=== PATIENT | female | born 1990 | race African-American/Black ===

== ENCOUNTER 2017-01-20 13:55 | Emergency (ER) | payer MEDICAID, OTHER ==
[~2017-01-20] VITALS: Ht 170.2 cm; Wt 140.0 kg
[2017-01-20 14:34] VITALS: BP 152/86
== END 2017-01-20 19:35 | disposition left against medical advice (07) ==
LOC: ER 16:13
DX: R10.9 Unspecified abdominal pain (principal); Z53.21 Procedure and treatment not carried out due to patient leaving prior to being seen by health care provider

== ENCOUNTER 2017-01-26 12:14 | Emergency (ER) | payer OTHER ==
[~2017-01-26] VITALS: Ht 170.2 cm; Wt 139.0 kg
[2017-01-26] MEDS ORDERED: LISI10TA5 PO (12:45)
[2017-01-26] MEDS ORDERED: METO25TA6 PO (12:45)
[2017-01-26] MEDS ORDERED: FURO-151 PO (12:45)
[2017-01-26 16:00] VITALS: BP 123/85
[2017-01-26] MEDS ORDERED: ACETAMINOPHEN 325MG TABLET PO ONE (16:15)
[2017-01-26] MEDS ORDERED: ONDANSETRON 4MG ODT PO ONE (16:15)
[2017-01-26 16:35] LABS: CLARITY URINE CLOUDY (CLEAR); COLOR URINE ORANGE (YELLOW); KETONES URINE 1+ (NEGATIVE); LEUKOCYTE ESTERASE URINE 1+ (NEGATIVE); NITRITE URINE NEGATIVE (NEGATIVE); OCCULT BLOOD URINE 3+ (NEGATIVE); PROTEIN URINE 1+ (NEGATIVE); SPECIFIC GRAVITY URINE 1.023 (1.005-1.030); UROBILINOGEN URINE 0.2 E.U./dL (0.2-1.0)
[2017-01-26 17:12] LABS: *AMPHETAMINES SCREEN URINE NEGATIVE (NEGATIVE); *BARBITURATES SCREEN URINE NEGATIVE (NEGATIVE); *BENZODIAZEPINES SCREEN URINE NEGATIVE (NEGATIVE); *COCAINE SCREEN URINE NEGATIVE (NEGATIVE); CANNABINOID URINE SCREEN NEGATIVE (NEGATIVE); METHADONE URINE SCREEN NEGATIVE (NEGATIVE); PHENCYCLIDINE URINE SCREEN NEGATIVE (NEGATIVE)
[2017-01-26 17:20] LABS: OPIATES URINE SCREEN PRESUMTIVE POSITIVE (NEGATIVE)
== END 2017-01-26 18:51 | disposition left against medical advice (07) ==
LOC: ER 14:19
DX: D25.9 Leiomyoma of uterus, unspecified (principal); I51.9 Heart disease, unspecified; Z88.6 Allergy status to analgesic agent; Z90.49 Acquired absence of other specified parts of digestive tract; Z98.890 Other specified postprocedural states; Z90.721 Acquired absence of ovaries, unilateral
CPT/HCPCS: 76830; 76856; 80305; 81001; 81025; 99285; Z7610; Q0162

== ENCOUNTER 2017-08-05 10:12 | Emergency (ER) | payer MEDICAID ==
[~2017-08-05] VITALS: Ht 160 cm; Wt 132.7 kg
[~2017-08-05 10:12] MED LIST: FURO-151 PO; LISI10TA5 PO; METO25TA6 PO
[2017-08-05] MEDS ORDERED: SODIUM CHLORIDE 0.9% 1,000 ML IV ONE (10:45)
[2017-08-05] MEDS ORDERED: ONDANSETRON HCL 4MG/2ML VIAL IV STA (10:45)
[2017-08-05] MEDS ORDERED: MORPHINE SULFATE 10 MG/ML CPJ IV ONE (11:15)
[2017-08-05] MEDS ORDERED: ONDANSETRON 4MG ODT PO ONE (11:15)
[2017-08-05 12:34] LABS: BASOPHILS % 0.9 % (0.0-2.0); EOSINOPHILS % 1.5 % (0.0-5.0); HEMATOCRIT. 28.5 % (36.0-48.0); HEMOGLOBIN. 8.8 g/dL (12.0-16.0); LYMPHOCYTES % 29.3 % (20.0-50.0); MEAN CORPUSCULAR HEMOGLOBIN 21.6 pg (28.0-32.0); MEAN CORPUSCULAR VOLUME 70.3 fL (81.0-99.0); MEAN PLATELET VOLUME 7.4 fl (7.4-10.4); MONOCYTES % 9.8 % (2.0-8.0); NEUTROPHILS % 58.5 % (40.0-76.0); PLATELET 407 x1000/uL (130-400); RED BLOOD CELL COUNT 4.05 mill/uL (4.2-5.4); RED CELL DISTRIBUTION WIDTH 18.8 % (11.6-14.6)
[2017-08-05 12:35] LABS: CHLORIDE 107 mEq/L (98-107)
[2017-08-05 12:37] LABS: PARTIAL THROMBOPLASTIN TIME 26.6 sec (23.4-31.0); PROTHROMBIN TIME 10.3 sec (9.4-11.6)
[2017-08-05 12:45] LABS: HCG SCREEN NEGATIVE
[2017-08-05 14:10] VITALS: BP 141/87
== END 2017-08-05 15:08 | disposition left against medical advice (07) ==
LOC: ER 10:12 → CANBEDREQ 15:32
DX: G89.18 Other acute postprocedural pain (principal); N99.842 Postprocedural seroma of a genitourinary system organ or structure following a genitourinary system procedure; L02.211 Cutaneous abscess of abdominal wall; D64.9 Anemia, unspecified; L02.818 Cutaneous abscess of other sites; Z90.710 Acquired absence of both cervix and uterus; Z88.6 Allergy status to analgesic agent; Z88.8 Allergy status to other drugs, medicaments and biological substances
CPT/HCPCS: 36415; 74022; 76857; 80053; 83605; 83690; 84703; 85025; 85610; 85730; 87040; 93005; 96361; 96374; 96375; 99285; J2270; J2405; J7030; Z7610

== ENCOUNTER 2020-10-06 13:10 | Emergency (ER) | payer MEDICAID ==
[~2020-10-06] VITALS: Ht 170.2 cm; Wt 110.0 kg
[~2020-10-06 13:10] MED LIST changes: +LISI10TA26 PO; -LISI10TA5 PO
[2020-10-06] MEDS ORDERED: DIPHENHYDRAMINE 50MG/ML VIAL IV ONE ×2 (14:00→16:15)
[2020-10-06] MEDS ORDERED: LORATADINE 10MG TABLET PO SCH (14:00)
[2020-10-06] MEDS ORDERED: FAMOTIDINE 20MG/2ML VIAL IV ONE (14:00)
[2020-10-06] MEDS ORDERED: SODIUM CHLORIDE 0.9% 1,000 ML IV ONE (14:00)
[2020-10-06 15:29] LABS: CLARITY URINE CLEAR (CLEAR); COLOR URINE YELLOW (YELLOW); KETONES URINE NEGATIVE (NEGATIVE); LEUKOCYTE ESTERASE URINE NEGATIVE (NEGATIVE); NITRITE URINE NEGATIVE (NEGATIVE); OCCULT BLOOD URINE NEGATIVE (NEGATIVE); PH URINE 5.5 (4.5-8.0); PROTEIN URINE NEGATIVE (NEGATIVE); SPECIFIC GRAVITY URINE 1.075 (1.005-1.030); UROBILINOGEN URINE 0.2 E.U./dL (0.2-1.0)
[2020-10-06] MEDS ORDERED: MORPHINE SULFATE 4 MG/ML CPJ (NOT FOR IM USE) IV ONE (15:30)
[2020-10-06 15:32] LABS: BASOPHILS % 0.3 % (0.0-2.0); EOSINOPHILS % 0.4 % (0.0-5.0); HEMATOCRIT. 36.8 % (36.0-48.0); HEMOGLOBIN. 12.2 g/dL (12.0-16.0); LYMPHOCYTES % 32.4 % (20.0-50.0); MEAN CORPUSCULAR HEMOGLOBIN 27.5 pg (28.0-32.0); MEAN PLATELET VOLUME 7.3 fl (7.4-10.4); MONOCYTES % 11.9 % (2.0-8.0); PLATELET 365 x1000/uL (130-400); RED BLOOD CELL COUNT 4.44 mill/uL (4.2-5.4); RED CELL DISTRIBUTION WIDTH 16.4 % (11.6-14.6)
[2020-10-06 15:35] LABS: CHLORIDE 109 mEq/L (98-107)
[2020-10-06 15:38] LABS: PROTHROMBIN TIME 10.3 sec (9.6-11.0)
[2020-10-06 15:44] VITALS: BP 153/93
== END 2020-10-06 17:43 | disposition left against medical advice (07) ==
LOC: ER 13:10
DX: R10.31 Right lower quadrant pain (principal); Z88.6 Allergy status to analgesic agent; Z88.8 Allergy status to other drugs, medicaments and biological substances; Z88.9 Allergy status to unspecified drugs, medicaments and biological substances; Z98.890 Other specified postprocedural states; Z90.49 Acquired absence of other specified parts of digestive tract; Z90.710 Acquired absence of both cervix and uterus
CPT/HCPCS: 36415; 71045; 80053; 81003; 83880; 84484; 85025; 85610; 85730; 93005; 96361; 96374; 96375; 96376; 99285; J1200; J2270; J3490; J7030

== ENCOUNTER 2020-10-13 10:19 | Emergency (ER) | payer MEDICAID ==
[~2020-10-13] VITALS: Ht 170.2 cm; Wt 115.0 kg
[2020-10-13] MEDS ORDERED: MORPHINE SULFATE 4 MG/ML CPJ (NOT FOR IM USE) IV STA (11:14)
[2020-10-13 11:30] VITALS: BP 161/92
[2020-10-13 11:39] LABS: CLARITY URINE CLEAR (CLEAR); COLOR URINE YELLOW (YELLOW); KETONES URINE NEGATIVE (NEGATIVE); LEUKOCYTE ESTERASE URINE NEGATIVE (NEGATIVE); NITRITE URINE NEGATIVE (NEGATIVE); OCCULT BLOOD URINE NEGATIVE (NEGATIVE); PROTEIN URINE NEGATIVE (NEGATIVE); UROBILINOGEN URINE 0.2 E.U./dL (0.2-1.0)
[2020-10-13] MEDS ORDERED: DIPHENHYDRAMINE 50MG/ML VIAL IV ONE (12:15)
[2020-10-13 12:56] LABS: BASOPHILS % 0.5 % (0.0-2.0); EOSINOPHILS % 0.4 % (0.0-5.0); HEMATOCRIT. 42.2 % (36.0-48.0); HEMOGLOBIN. 13.2 g/dL (12.0-16.0); LYMPHOCYTES % 35.1 % (20.0-50.0); MEAN CORPUSCULAR HEMOGLOBIN 27.3 pg (28.0-32.0); MEAN CORPUSCULAR VOLUME 87.3 fL (81.0-99.0); MONOCYTES % 12.9 % (2.0-8.0); NEUTROPHILS % 51.1 % (40.0-76.0); PLATELET 291 x1000/uL (130-400); RED BLOOD CELL COUNT 4.83 mill/uL (4.2-5.4); RED CELL DISTRIBUTION WIDTH 16.7 % (11.6-14.6)
[2020-10-13 13:01] LABS: CHLORIDE 110 mEq/L (98-107)
[2020-10-13 13:13] LABS: HCG SCREEN NEGATIVE
== END 2020-10-13 12:45 | disposition left against medical advice (07) ==
LOC: ER 10:19
DX: R10.31 Right lower quadrant pain (principal); Z88.6 Allergy status to analgesic agent; Z88.8 Allergy status to other drugs, medicaments and biological substances; Z88.9 Allergy status to unspecified drugs, medicaments and biological substances; Z90.49 Acquired absence of other specified parts of digestive tract; Z90.710 Acquired absence of both cervix and uterus; Z98.890 Other specified postprocedural states
CPT/HCPCS: 36415; 80053; 81003; 81025; 84703; 85025; 99283

== ENCOUNTER 2020-11-15 04:37 | Emergency (ER) | payer MEDICAID ==
[~2020-11-15] VITALS: Ht 170.2 cm; Wt 148.0 kg
[2020-11-15] MEDS ORDERED: MORPHINE SULFATE 4 MG/ML CPJ (NOT FOR IM USE) IV STA (05:27)
[2020-11-15] MEDS ORDERED: ONDANSETRON HCL 4MG/2ML INJ IV STA (05:27)
[2020-11-15] MEDS ORDERED: DIPHENHYDRAMINE 50MG/ML VIAL IV ONE (05:30)
[2020-11-15 05:50] LABS: BASOPHILS % 0.7 % (0.0-2.0); EOSINOPHILS % 2.3 % (0.0-5.0); HEMATOCRIT. 35.1 % (36.0-48.0); HEMOGLOBIN. 11.5 g/dL (12.0-16.0); LYMPHOCYTES % 21.6 % (20.0-50.0); MEAN CORPUSCULAR HEMOGLOBIN 27.1 pg (28.0-32.0); MEAN CORPUSCULAR VOLUME 82.7 fL (81.0-99.0); MONOCYTES % 14.2 % (2.0-8.0); NEUTROPHILS % 61.2 % (40.0-76.0); PLATELET 331 x1000/uL (130-400); RED BLOOD CELL COUNT 4.25 mill/uL (4.2-5.4); RED CELL DISTRIBUTION WIDTH 16.7 % (11.6-14.6)
[2020-11-15 05:55] LABS: CHLORIDE 107 mEq/L (98-107)
[2020-11-15 06:12] LABS: INR 0.9; PROTHROMBIN TIME 9.8 sec (9.6-11.0)
[2020-11-15] MEDS ORDERED: MORPHINE SULFATE 4 MG/ML CPJ (NOT FOR IM USE) IV ONE ×2 (06:45→08:30)
[2020-11-15] MEDS ORDERED: IOHEXOL-300 100 ML BOTTLE ONE (07:26)
[2020-11-15 07:51] LABS: CLARITY URINE CLEAR (CLEAR); COLOR URINE YELLOW (YELLOW); KETONES URINE NEGATIVE (NEGATIVE); LEUKOCYTE ESTERASE URINE NEGATIVE (NEGATIVE); NITRITE URINE NEGATIVE (NEGATIVE); OCCULT BLOOD URINE NEGATIVE (NEGATIVE); PH URINE 5.5 (4.5-8.0); PROTEIN URINE NEGATIVE (NEGATIVE); SPECIFIC GRAVITY URINE 1.014 (1.005-1.030); UROBILINOGEN URINE 0.2 E.U./dL (0.2-1.0)
[2020-11-15 09:00] VITALS: BP 156/80
[2020-11-15] MEDS ORDERED: T3 PO (09:20)
[2020-11-15] MEDS ORDERED: ONDA4TAB5 PO (09:21)
== END 2020-11-15 10:39 | disposition home or self-care (01) ==
LOC: ER 04:37 → EDBEDREQ 08:35 → EDBEDREQTM 08:35 → CANBEDREQ 10:26 → ER 10:39
DX: R10.30 Lower abdominal pain, unspecified (principal); E11.9 Type 2 diabetes mellitus without complications; I25.10 Atherosclerotic heart disease of native coronary artery without angina pectoris; Z98.890 Other specified postprocedural states; Z88.8 Allergy status to other drugs, medicaments and biological substances; Z88.6 Allergy status to analgesic agent
CPT/HCPCS: 36415; 74177; 80053; 81003; 83690; 85025; 85610; 93005; 96374; 96375; 96376; 99285; J1200; J2270; J2405; Q9967

== ENCOUNTER 2020-12-07 07:37 | Emergency (ER) | payer MEDICAID ==
[~2020-12-07] VITALS: Ht 170.2 cm; Wt 148.0 kg
[~2020-12-07 07:37] MED LIST changes: +ONDA4TAB5 PO; +T3 PO
[2020-12-07] MEDS ORDERED: ONDANSETRON HCL 4MG/2ML INJ IV STA (08:33)
[2020-12-07] MEDS ORDERED: MORPHINE SULFATE 4 MG/ML CPJ (NOT FOR IM USE) IV STA (08:33)
[2020-12-07] MEDS ORDERED: SODIUM CHLORIDE 0.9% 1,000 ML IV ONE (08:45)
[2020-12-07] MEDS ORDERED: MORPHINE SULFATE 2 MG/ML CPJ (NOT FOR IM USE) IV STA (09:04)
[2020-12-07 09:06] LABS: EOSINOPHILS % 0.9 % (0.0-5.0); HEMATOCRIT. 35.8 % (36.0-48.0); HEMOGLOBIN. 11.7 g/dL (12.0-16.0); LYMPHOCYTES % 30.6 % (20.0-50.0); MEAN CORPUSCULAR HEMOGLOBIN 26.5 pg (28.0-32.0); MEAN CORPUSCULAR VOLUME 81.1 fL (81.0-99.0); MEAN PLATELET VOLUME 7.1 fl (7.4-10.4); MONOCYTES % 10.3 % (2.0-8.0); NEUTROPHILS % 57.2 % (40.0-76.0); PLATELET 347 x1000/uL (130-400); RED BLOOD CELL COUNT 4.41 mill/uL (4.2-5.4); RED CELL DISTRIBUTION WIDTH 16.7 % (11.6-14.6)
[2020-12-07 09:13] LABS: CHLORIDE 106 mEq/L (98-107)
[2020-12-07] MEDS ORDERED: DIPHENHYDRAMINE 25MG CAPSULE PO ONE (09:45)
[2020-12-07 10:30] VITALS: BP 140/86
== END 2020-12-07 14:57 | disposition home or self-care (01) ==
LOC: ER 07:37
DX: R10.33 Periumbilical pain (principal); I50.9 Heart failure, unspecified; E11.9 Type 2 diabetes mellitus without complications; Z90.49 Acquired absence of other specified parts of digestive tract; Z90.710 Acquired absence of both cervix and uterus; Z88.8 Allergy status to other drugs, medicaments and biological substances; Z88.6 Allergy status to analgesic agent; Z87.19 Personal history of other diseases of the digestive system
CPT/HCPCS: 36415; 80053; 83690; 85025; 86850; 86900; 86901; 96361; 96374; 96375; 99284; J2270; J2405; J7030; Q0163

== ENCOUNTER 2021-11-29 06:28 | Emergency (ER) | payer MEDICAID ==
[~2021-11-29] VITALS: Ht 170.2 cm; Wt 163.2 kg
[2021-11-29 08:56] LABS: CLARITY URINE CLEAR (CLEAR); COLOR URINE YELLOW (YELLOW); PROTEIN URINE TRACE (NEGATIVE); SPECIFIC GRAVITY URINE 1.042 (1.005-1.030)
[2021-11-29 08:57] LABS: KETONES URINE 1+ (NEGATIVE); LEUKOCYTE ESTERASE URINE NEGATIVE (NEGATIVE); NITRITE URINE NEGATIVE (NEGATIVE); OCCULT BLOOD URINE NEGATIVE (NEGATIVE); UROBILINOGEN URINE 0.2 E.U./dL (0.2-1.0)
[2021-11-29] MEDS ORDERED: KETOROLAC 30MG/ML VIAL IV ONE (12:00)
[2021-11-29 12:13] VITALS: BP 141/92
[2021-11-29 12:35] LABS: BASOPHILS % 0.3 % (0.0-2.0); EOSINOPHILS % 0.4 % (0.0-5.0); HEMOGLOBIN. 11.6 g/dL (12.0-16.0); LYMPHOCYTES % 26.9 % (20.0-50.0); MEAN CORPUSCULAR VOLUME 81.2 fL (81.0-99.0); MEAN PLATELET VOLUME 7.7 fl (7.4-10.4); MONOCYTES % 8.9 % (2.0-8.0); NEUTROPHILS % 63.5 % (40.0-76.0); PLATELET 334 x1000/uL (130-400); RED BLOOD CELL COUNT 4.31 mill/uL (4.2-5.4); RED CELL DISTRIBUTION WIDTH 16.4 % (11.6-14.6)
[2021-11-29 12:46] LABS: HCG SCREEN NEGATIVE
[2021-11-29 12:49] LABS: CHLORIDE 102 mEq/L (98-107)
[2021-11-29 14:29] LABS: INR 0.9; PROTHROMBIN TIME 10.2 sec (9.6-11.0)
== END 2021-11-29 13:17 | disposition home or self-care (01) ==
LOC: ER 06:40
DX: R10.31 Right lower quadrant pain (principal); I50.9 Heart failure, unspecified; E11.9 Type 2 diabetes mellitus without complications; Z87.19 Personal history of other diseases of the digestive system; Z90.49 Acquired absence of other specified parts of digestive tract; Z90.710 Acquired absence of both cervix and uterus; Z88.6 Allergy status to analgesic agent; Z88.8 Allergy status to other drugs, medicaments and biological substances
CPT/HCPCS: 36415; 36573; 71045; 74176; 80053; 81003; 81025; 83690; 84703; 85025; 85610; 96374; 99285; C1725; J1885; Z7610